=== PATIENT | female | born 1985 | race Caucasian/White ===

== ENCOUNTER 2017-03-20 22:51 | Emergency (ER) | payer MEDICAID ==
[~2017-03-20] VITALS: Ht 154.9 cm; Wt 56.7 kg
[2017-03-21 00:48] LABS: BASOPHILS # (AUTO) 0.1 /CMM (0.0-0.2); BASOPHILS % (AUTO) 0.7 % (0.0-2.0); EOSINOPHILS # (AUTO) 0.1 /CMM (0.0-0.7); EOSINOPHILS % (AUTO) 0.4 % (0.0-6.0); HEMATOCRIT 41 % (33-45); LYMPHOCYTES # (AUTO) 2.6 /CMM (0.8-4.8); LYMPHOCYTES % (AUTO) 18.4 % (20.0-44.0); MEAN CORPUSCULAR HEMOGLOBIN 29 PG (26.0-33.0); MEAN CORPUSCULAR HGB CONC 34 g/dl (31.0-36.0); MEAN CORPUSCULAR VOLUME 84 fL (82-100); MONOCYTES # (AUTO) 0.8 /CMM (0.1-1.30); MONOCYTES % (AUTO) 5.9 % (2.0-12.0); NEUTROPHILS # (AUTO) 10.4 /CMM (1.8-8.9); NEUTROPHILS % (AUTO) 74.6 % (43.0-81.0); PLATELET COUNT (AUTO) 310 /CMM (150-450); RDW COEFFICIENT OF VARIATION 12.9 (11.5-15.0); RED BLOOD CELL COUNT(AUTO) 4.86 MIL/uL (4.0-5.2); WHITE BLOOD COUNT (AUTO) 13.9 K/uL (4.3-11.0)
--- NOTE | 2017-03-21 01:08 | NUR ---
PT PRESENTED TO THE ER WITH A C/O ABD AND BACK PAIN X 1 DAY. PT STATED THAT SHE IS 7 WEEKS . PT IS C/O BROWN DISCHARGE. URINE SAMPLE OBTAINED AND SENT TO LAB. PT AMBULATED TO BED #16 AND TICO JOHNSON IS AT THE BEDSIDE EVALUATING THE PT.
[2017-03-21 01:09] LABS: CALCIUM, SERUM 9.1 mg/dL (8.5-10.1); CREATININE 0.7 mg/dL (0.6-1.3); POTASSIUM 3.8 mmol/L (3.5-5.1)
--- NOTE | 2017-03-21 01:12 | NUR ---
CALLED LAB RE: CHEMISTRY AND HCG, QUANT RESULTS. SHOULD RESULT IN APPROX 25 MINS.
--- NOTE | 2017-03-21 01:17 | NUR ---
PT IS C/O 5/10 ABD CRAMPING PAIN.
[2017-03-21 01:21] LABS: ALBUMIN 4.2 g/dL (3.4-5.0); BILIRUBIN,TOTAL 0.5 mg/dL (0.2-1.0); TOTAL PROTEIN, SERUM 7.5 g/dL (6.4-8.2)
[2017-03-21 01:49] LABS: APPEARANCE,URINE CLEAR (CLEAR); BILIRUBIN,URINE NEGATIVE (NEGATIVE); BLOOD, URINE 1+ Ery/uL (NEGATIVE); COLOR,URINE YELLOW (YELLOW); KETONES,URINE TRACE (NEGATIVE); LEUKOCYTE ESTERASE ,URINE NEGATIVE (NEGATIVE); NITRITE, URINE NEGATIVE (NEGATIVE); PROTEIN,URINE NEGATIVE (NEGATIVE); UGLUCOSE NEGATIVE (NEGATIVE); UROBILINOGEN,URINE 0.2 EU/dL (0.2)
[2017-03-21 01:57] LABS: BACTERIA,URINE None seen /HPF (None Seen); SQUAMOUS EPITHELIAL CELL,UR Few /HPF (None Seen); WBC,URINE 0-2 /HPF (0-3)
[2017-03-21 01:58] LABS: CALCIUM OXALATE CRYSTALS,UR Few /HPF (None Seen)
--- NOTE | 2017-03-21 02:02 | NUR ---
Patient discharged to home in stable condition. Written and verbal after care instructions given. Patient verbalizes understanding of instruction AND RX. PT AMBULATED OUT WITH A STEADY GAIT. PT TO F/U WITH [employer] IN 2-3 DAYS. RESP EVEN AND UNLABORED. VSS. NAD NOTED.
[2017-03-21 02:03] VITALS: BP 128/84
== END 2017-03-21 02:02 | disposition home or self-care (01) ==
LOC: ER 22:54
DX: O20.8 Other hemorrhage in early pregnancy (principal)
CPT/HCPCS: 36415; 80053-TC; 81000-TC; 84702-TC; 85025-TC; 86850-TC; A4606; Z7610